=== PATIENT | female | born 1990 | race Caucasian/White ===

== ENCOUNTER 2016-10-26 17:59 | Emergency (ER) | payer OTHER ==
[2016-10-26 18:16] VITALS: BMI 33.9
[2016-10-26 18:20] VITALS: BP 119/85; PULSE 78; RESP 20; TEMP 98.8; O2SAT 100
[2016-10-26 19:34] LABS: RBC URINE 2 /hpf (0-3); TRANSITIONAL EPITHIAL < 1 /hpf (0-3); URINE BACTERIA RARE (<OCC); URINE BILIRUBIN NEGATIVE (NEGATIVE); URINE BLOOD NEGATIVE (NEGATIVE); URINE COLOR Yellow (YELLOW); URINE GLUCOSE (UA) NORMAL (Normal); URINE KETONE NEGATIVE (NEGATIVE); URINE LEUKOCYTE ESTERASE NEG Leu/uL (Negative); URINE PROTEIN NEGATIVE (NEGATIVE); WBC URINE 1 /hpf (0-5)
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
--- NOTE | 2016-10-27 07:22 | CT ---
PROCEDURE: CT HEAD WITHOUT CONTRAST. HISTORY: headache COMPARISON: None available. TECHNIQUE: Axial computed tomography images were obtained through the head/brain without intravenous contrast. Radiation dose: Total exam DLP = 828 mGy-cm. This CT exam was performed using one or more of the following dose reduction techniques: Automated exposure control, adjustment of the mA and/or kV according to patient size, and/or use of iterative reconstruction technique. FINDINGS: HEMORRHAGE: No intracranial hemorrhage. BRAIN: No mass effect or edema. No atrophy or chronic microvascular ischemic changes. Few small lobulated calcified foci seen within the region of the posterior bilateral occipital lobes/superior cerebellum; for example, on series 4, images 20 and 23, nonspecific. This may represent some mild granulomatous change. VENTRICLES: Unremarkable. No hydrocephalus. CALVARIUM: Unremarkable. PARANASAL SINUSES: Mild mucosal thickening of the inferior margin of the right sphenoid sinus. MASTOID AIR CELLS: Unremarkable as visualized. No inflammatory changes. OTHER FINDINGS: None. IMPRESSION: No acute intracranial abnormality. Few small lobulated calcified foci seen within the region of the posterior bilateral occipital lobes/superior cerebellum; for example, on series 4, images 20 and 23, nonspecific. This may represent some mild granulomatous change. Mild sinus mucosal disease. If focal neurologic deficit persists, consider MRI. These findings were preliminarily reported at 8:20 p.m. on 10/26/[address] Gene Chadwick from [facility].
== END 2016-10-26 21:40 | disposition home or self-care (01) ==
LOC: C.ER 17:59
DX: S06.0X0A Concussion without loss of consciousness, initial encounter (principal); W22.8XXA Striking against or struck by other objects, initial encounter; Y92.009 Unspecified place in unspecified non-institutional (private) residence as the place of occurrence of the external cause

== ENCOUNTER 2017-10-07 11:52 | Emergency (ER) | payer OTHER ==
[2017-10-07 11:53] VITALS: BMI 33.9
[2017-10-07 12:06] VITALS: RESP 18; TEMP 99.1
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
--- NOTE | 2017-10-07 13:16 | RAD ---
PROCEDURE: Radiographs of the Left Shoulder HISTORY: injury COMPARISON: No prior. FINDINGS: BONES: No acute fracture or destructive bony lesion identified. JOINTS: No subluxation or dislocation apparent. Glenohumeral and acromioclavicular joints preserved. No osteoarthritis. SOFT TISSUES: Normal. OTHER FINDINGS: None. IMPRESSION: Unremarkable radiographs of the left shoulder.
[2017-10-07 13:25] VITALS: BP 125/80; PULSE 86; O2SAT 99
== END 2017-10-07 13:00 | disposition home or self-care (01) ==
LOC: C.ER 11:52
DX: S40.012A Contusion of left shoulder, initial encounter (principal); V03.90XA Pedestrian on foot injured in collision with car, pick-up truck or van, unspecified whether traffic or nontraffic accident, initial encounter

== ENCOUNTER 2018-06-01 08:23 | Outpatient (CLI) | payer OTHER | END 2018-06-01 08:24 | disposition home or self-care (01) | LOC: C.USIC 08:23 | DX: N63.0 Unspecified lump in unspecified breast (principal) ==

== ENCOUNTER 2018-08-12 12:22 | Outpatient (CLI) | payer OTHER | END 2018-08-12 12:23 | disposition home or self-care (01) | LOC: C.MRIC 12:22 | DX: T85.49XA Other mechanical complication of breast prosthesis and implant, initial encounter (principal) ==